=== PATIENT | female | born 1955 | race Caucasian/White ===

== ENCOUNTER 2024-03-20 10:53 | Inpatient (IN) | payer MEDICARE, MEDICAID ==
[~2024-03-20] VITALS: Ht 157.5 cm; Wt 91.0 kg
[2024-03-20 11:15] LABS: BASOPHILS # (AUTO) 0.1 X10'3 (0-0.2); BASOPHILS % (AUTO) 0.9 % (0-1); EOSINOPHILS # (AUTO) 0.4 X10'3 (0-0.9); EOSINOPHILS % (AUTO) 4.8 % (0-6); HEMATOCRIT 45.8 % (35.0-45.0); HEMOGLOBIN 14.9 g/dl (12.0-16.0); LYMPHOCYTES # (AUTO) 1.9 X10'3 (1.1-4.8); LYMPHOCYTES % (AUTO) 23.2 % (21-51); MEAN CORPUSCULAR HEMOGLOBIN 27.8 PG (27.0-31.0); MEAN CORPUSCULAR HGB CONC 32.6 g/dL (33.0-36.5); MEAN CORPUSCULAR VOLUME 85.2 FL (78-98); MEAN PLATELET VOLUME 7.9 FL (7.4-10.4); MONOCYTES # (AUTO) 0.9 X10'3 (0-0.9); MONOCYTES % (AUTO) 10.7 % (2-12); NEUTROPHILS % (AUTO) 60.4 % (42-75); PLATELET COUNT 291 X10'3 (140-440); RED BLOOD COUNT 5.37 X10'6 (4.20-5.60); RED CELL DISTRIBUTION WIDTH 14.5 % (11.5-14.5); WHITE BLOOD COUNT 8.3 X10'3 (4.5-11.0)
[2024-03-20 11:42] LABS: ALANINE AMINOTRANSFERASE 42 U/L (12-78); ALBUMIN 4.1 G/DL (3.4-5.0); ALBUMIN/GLOBULIN RATIO 1.1 (1.1-1.5); ALKALINE PHOSPHATASE 104 IU/L (46-116); ANION GAP 11 (8-16); ASPARTATE AMINO TRANSFERASE 22 U/L (10-37); BILIRUBIN,TOTAL 1.3 MG/DL (0.1-1.0); BLOOD UREA NITROGEN 11 MG/DL (7-18); BUN/CREATININE RATIO 13.6 (10.0-20.0); CALCIUM 9.6 MG/DL (8.5-10.1); CHLORIDE 104 MMOL/L (99-107); CREATININE 0.81 MG/DL (0.40-0.90); GLUCOSE 139 MG/DL (70-104); PRO BRAIN NATRIURETIC PEPTIDE 60 PG/ML (0-125); SODIUM 141 MMOL/L (135-145); TOTAL CARBON DIOXIDE 26.4 MMOL/L (24-32); TOTAL PROTEIN 7.7 G/DL (6.4-8.2); eCRCL 54 ML/MIN; eGFR 71 ML/MIN
[2024-03-20] MEDS ORDERED: ondansetron/PF 4mg/2ml inj IV PRN (14:50)
[2024-03-20] MEDS ORDERED: aminophylline 250mg/10ml inj. IV PRN (14:50)
[2024-03-20] MEDS ORDERED: potassium Cl 20 mEq SR tablet PO PRN ×2 (14:50)
[2024-03-20] MEDS ORDERED: potassium Cl 40MEQ/1/2NS 520ml 520 ML IV PRN (14:50)
[2024-03-20] MEDS ORDERED: acetaminophen 325mg tablet PO PRN (14:50)
[2024-03-20] MEDS ORDERED: morphine 2 MG/ML inj. syringe IV PRN (14:50)
[2024-03-20] MEDS ORDERED: magnesium Cl slow-release 64mg tablet PO PRN (14:50)
[2024-03-20] MEDS ORDERED: magnesium sulf-water 2g/50mL 50 ML IV PRN (14:50)
[2024-03-20] MEDS ORDERED: magnesium hydroxide 30ml (MOM) UD suspension PO PRN (14:50)
[2024-03-20] MEDS ORDERED: magnesium sulf-water 4G/100mL 100 ML IV PRN (14:50)
[2024-03-20] MEDS ORDERED: mag hydrox/Alum hydrox/simeth 30ml oral suspension PO PRN (14:50)
[2024-03-20] MEDS ORDERED: metoprolol tartrate 1mg/ml inj IV PRN (14:50)
[2024-03-20 15:45] LABS: HEMOGLOBIN A1C 7.8 % (4.5-6.2)
[2024-03-20] MEDS ORDERED: ATOR10TA70 PO (16:02)
[2024-03-20] MEDS ORDERED: DULA0.75 SQ (16:02)
[2024-03-20] MEDS ORDERED: LISI10TA27 PO (16:02)
[2024-03-20] MEDS: Dulaglutide (Trulicity) 0.75 MG SQ SCH (16:30)
[2024-03-20] MEDS: atorvastatin 10mg tablet PO SCH (16:50)
[2024-03-20] MEDS: lisinopril 10 MG tablet PO SCH (16:50)
[2024-03-20] MEDS: docusate sod 100mg capsule PO SCH (20:00)
[2024-03-20] MEDS: K and/or MAG REPLACEMENT MC SCH (20:00)
[2024-03-20 21:10] VITALS: BP 151/72; PULSE 82; RESP 18; TEMP 98.6; O2SAT 96
[2024-03-21] VITALS (18 sets, daily range): BP systolic 113–168; BP diastolic 60–84; PULSE 62–96; RESP 12–18; TEMP 97–98; O2SAT 94–99
[2024-03-21 06:55] LABS: BASOPHILS # (AUTO) 0.1 X10'3 (0-0.2); EOSINOPHILS # (AUTO) 0.5 X10'3 (0-0.9); EOSINOPHILS % (AUTO) 6.6 % (0-6); HEMATOCRIT 42.8 % (35.0-45.0); HEMOGLOBIN 14.2 g/dl (12.0-16.0); LYMPHOCYTES # (AUTO) 1.6 X10'3 (1.1-4.8); LYMPHOCYTES % (AUTO) 22.8 % (21-51); MEAN CORPUSCULAR HGB CONC 33.1 g/dL (33.0-36.5); MEAN CORPUSCULAR VOLUME 84.6 FL (78-98); MEAN PLATELET VOLUME 8.1 FL (7.4-10.4); MONOCYTES # (AUTO) 0.8 X10'3 (0-0.9); MONOCYTES % (AUTO) 11.9 % (2-12); NEUTROPHILS # (AUTO) 4.1 X10'3 (1.8-7.7); NEUTROPHILS % (AUTO) 57.7 % (42-75); PLATELET COUNT 272 X10'3 (140-440); RED BLOOD COUNT 5.06 X10'6 (4.20-5.60); RED CELL DISTRIBUTION WIDTH 14.3 % (11.5-14.5); WHITE BLOOD COUNT 7.1 X10'3 (4.5-11.0)
[2024-03-21 07:03] LABS: ALBUMIN 3.5 G/DL (3.4-5.0); ANION GAP 8 (8-16); BLOOD UREA NITROGEN 9 MG/DL (7-18); BUN/CREATININE RATIO 11.1 (10.0-20.0); CHLORIDE 105 MMOL/L (99-107); CREATININE 0.81 MG/DL (0.40-0.90); GLUCOSE 136 MG/DL (70-104); SODIUM 139 MMOL/L (135-145); TOTAL CARBON DIOXIDE 26.5 MMOL/L (24-32); eCRCL 54 ML/MIN; eGFR 71 ML/MIN
[2024-03-21] MEDS: regadenoson 0.4mg/5ml syringe IV PRN (10:02)
[2024-03-21] MEDS: atorvastatin 20mg tablet PO SCH ×2 (12:38→13:52)
[2024-03-21] MEDS: aspirin 325mg tablet PO ONE (12:38)
[2024-03-21] MEDS ORDERED: nitroGLYCERIN 0.4mg SUBLingual tab SL PRN (13:55)
[2024-03-21 15:22] LABS: CHOL/HDL RATIO 3.6 (0.00-4.99); CHOLESTEROL 157 MG/DL (0-200); HDL CHOLESTEROL 44 MG/DL (35-60); LDL CHOLESTEROL 89 MG/DL (50-100); TRIGLYCERIDES 158 MG/DL (20-135)
[2024-03-21] MEDS ORDERED: midazolam 1 mg/ML 2ml injection ONE (16:02)
[2024-03-21] MEDS ORDERED: LIDOcaine 1% 30ml preserv. free vial ONE (16:02)
[2024-03-21] MEDS ORDERED: iohexol 350MG/ML 100ml bottle IV ONE ×2 (16:02→16:48)
[2024-03-21] MEDS ORDERED: fentaNYL/PF 50MCG/1 ML 2ML syringe ONE (16:02)
[2024-03-21] MEDS ORDERED: verapamil 2.5 mg/ml inj IV ONE (16:02)
[2024-03-21] MEDS ORDERED: heparin 1,000unit/ml 10ml vial 10 ML ONE (16:02)
[2024-03-21] MEDS ORDERED: nitroGLYCERIN 500mcg/5mL D5W 5 ML IV ONE (16:03)
[2024-03-21] MEDS ORDERED: aspirin 325mg tablet ONE (16:42)
[2024-03-21] MEDS ORDERED: ticagrelor 90mg tablet ONE (16:42)
[2024-03-21] MEDS ORDERED: phenylephrine 10mg/ml inj. -priapism dosing ONE (16:43)
[2024-03-21] MEDS ORDERED: DEXTROSE 15 GM of carb/4 tabs (each vial/BOTTLE has 4 tablets) PO PRN ×2 (18:30)
[2024-03-21] MEDS ORDERED: glucagon, human recombinant 1mg kit SUBCUT PRN (18:30)
[2024-03-21] MEDS ORDERED: dextrose 50%-water 50ml dispensing syringe IV PRN ×2 (18:30)
[2024-03-21] MEDS: insulin glargine (Lantus) pen - multi-dose SQ SCH (18:35)
[2024-03-21] MEDS: INSULIN LISPRO 100 UNIT/ML INSULN.PEN MULTI-DOSE SQ SCH (21:00)
[2024-03-21] MEDS: metoprolol tartrate 12.5mg (1/2 tablet) PO SCH (22:45)
[2024-03-22 02:00] VITALS: BP 138/78; PULSE 80; RESP 18; TEMP 99; O2SAT 96
[2024-03-22 06:00] VITALS: BP 131/70; PULSE 88; RESP 14; TEMP 97.3; O2SAT 92
[2024-03-22 08:00] VITALS: RESP 18; O2SAT 97
[2024-03-22] MEDS: ticagrelor 90mg tablet PO SCH (08:03)
[2024-03-22] MEDS: aspirin 81mg tab.chew PO SCH (08:04)
[2024-03-22 08:42] LABS: BASOPHILS % (AUTO) 0.6 % (0-1); EOSINOPHILS # (AUTO) 0.4 X10'3 (0-0.9); EOSINOPHILS % (AUTO) 4.5 % (0-6); HEMATOCRIT 43.2 % (35.0-45.0); HEMOGLOBIN 14.4 g/dl (12.0-16.0); LYMPHOCYTES # (AUTO) 1.3 X10'3 (1.1-4.8); LYMPHOCYTES % (AUTO) 15.2 % (21-51); MEAN CORPUSCULAR HEMOGLOBIN 28.1 PG (27.0-31.0); MEAN CORPUSCULAR HGB CONC 33.2 g/dL (33.0-36.5); MEAN CORPUSCULAR VOLUME 84.5 FL (78-98); MONOCYTES # (AUTO) 0.9 X10'3 (0-0.9); MONOCYTES % (AUTO) 10.1 % (2-12); NEUTROPHILS # (AUTO) 5.9 X10'3 (1.8-7.7); NEUTROPHILS % (AUTO) 69.6 % (42-75); PLATELET COUNT 276 X10'3 (140-440); RED BLOOD COUNT 5.12 X10'6 (4.20-5.60); RED CELL DISTRIBUTION WIDTH 14.3 % (11.5-14.5); WHITE BLOOD COUNT 8.4 X10'3 (4.5-11.0)
[2024-03-22 09:18] LABS: ALBUMIN 3.5 G/DL (3.4-5.0); ANION GAP 9 (8-16); BLOOD UREA NITROGEN 10 MG/DL (7-18); BUN/CREATININE RATIO 14.7 (10.0-20.0); CALCIUM 8.9 MG/DL (8.5-10.1); CHLORIDE 107 MMOL/L (99-107); CREATININE 0.68 MG/DL (0.40-0.90); GLUCOSE 134 MG/DL (70-104); MAGNESIUM 1.9 MG/DL (1.5-2.4); SODIUM 139 MMOL/L (135-145); TOTAL CARBON DIOXIDE 23.2 MMOL/L (24-32); eCRCL 64 ML/MIN; eGFR 87 ML/MIN
[2024-03-22 11:00] VITALS: BP 121/63; PULSE 79; RESP 15; TEMP 97.7; O2SAT 94
[2024-03-22] MEDS ORDERED: ATOR-2 PO (13:33)
[2024-03-22] MEDS ORDERED: TICA90TA2 PO (13:33)
[2024-03-22] MEDS ORDERED: METO-395 PO (13:33)
[2024-03-22] MEDS ORDERED: ASPI-1265 PO (13:33)
[2024-03-22 15:00] VITALS: BP 133/76; PULSE 90; RESP 18; TEMP 98.2; O2SAT 99
== END 2024-03-22 16:35 | disposition home or self-care (01) | DRG 322 ==
LOC: ER 10:54 → ED HOLD 14:59 → PCU 3S 21:10
PROVIDERS: ADMIT Family Medicine; ATTEND Family Medicine
PROC: 027034Z Dilation of Coronary Artery, One Artery with Drug-eluting Intraluminal Device, Percutaneous Approach (ICD-10-PCS; principal; 2024-03-21)
PROC: 4A023N7 Measurement of Cardiac Sampling and Pressure, Left Heart, Percutaneous Approach (ICD-10-PCS; 2024-03-21)
PROC: B2111ZZ Fluoroscopy of Multiple Coronary Arteries using Low Osmolar Contrast (ICD-10-PCS; 2024-03-21)
PROC: 4A02XM4 Measurement of Cardiac Total Activity, External Approach (ICD-10-PCS; 2024-03-21)
PROC: 3E033HZ Introduction of Radioactive Substance into Peripheral Vein, Percutaneous Approach (ICD-10-PCS; 2024-03-21)
DX: I25.110 Atherosclerotic heart disease of native coronary artery with unstable angina pectoris (principal); I10 Essential (primary) hypertension; E11.9 Type 2 diabetes mellitus without complications; E78.5 Hyperlipidemia, unspecified; G89.29 Other chronic pain; M54.9 Dorsalgia, unspecified; I25.2 Old myocardial infarction; Z88.0 Allergy status to penicillin; Z79.899 Other long term (current) drug therapy; Z85.72 Personal history of non-Hodgkin lymphomas; Z85.038 Personal history of other malignant neoplasm of large intestine; Z85.048 Personal history of other malignant neoplasm of rectum, rectosigmoid junction, and anus; Z90.49 Acquired absence of other specified parts of digestive tract; Z82.49 Family history of ischemic heart disease and other diseases of the circulatory system
CPT/HCPCS: 93306; 93458; 99285; C9600; 36415; 71045; 78452; 80048; 80053; 80061; 82948; 83036; 83735; 83880; 84484; 85025; 87081; 93005; 93017; 99152; 99153; A6258; A9500; C1725; C1751; C1769; C1874; C1894; G0378; J1644; J1815; J2250; J2370; J2785; J3010; J3490; J7030; Q9967